=== PATIENT | female | born 1995 | race African-American/Black ===

== ENCOUNTER 2018-12-20 20:31 | Emergency (ER) | payer OTHER ==
[2018-12-20 20:51] VITALS: BP 114/81; PULSE 82; TEMP 98.6; BMI 18.8
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
[2018-12-20] MEDS ORDERED: KETOROLAC TROMETHAMINE 30 MG/1 ML VIAL IM ONE (21:48)
[2018-12-20] MEDS ORDERED: KETOROLAC TROMETHAMINE 30 MG/1 ML VIAL ONE (22:19)
== END 2018-12-20 23:39 | disposition home or self-care (01) ==
LOC: JER 20:31
PROC: 3E0233Z Introduction of Anti-inflammatory into Muscle, Percutaneous Approach (ICD-10-PCS; principal; 2018-12-20)
DX: M54.5 Low back pain (principal); V47.6XXA Car passenger injured in collision with fixed or stationary object in traffic accident, initial encounter; Y92.411 Interstate highway as the place of occurrence of the external cause; Y93.89 Activity, other specified; Y99.8 Other external cause status
CPT/HCPCS: 72131-TC; 84703; 99283-25